=== PATIENT | male | born 1990 | race Hispanic/Latino ===

== ENCOUNTER 2017-07-25 14:15 | Emergency (ER) | payer OTHER ==
[2017-07-25 14:35] VITALS: BP 114/69; PULSE 68; RESP 16; TEMP 98.6; O2SAT 99
--- NOTE | 2017-07-25 15:45 | ED PDOC ---
HPI: CCC, URI, Sore Throat Time Seen by Provider: 07/25/17 15:14 Chief Complaint (Nursing): Cough, Cold, Congestion Chief Complaint (Provider): Cough History Per: Patient History/Exam Limitations: no limitations Have you had recent travel within the past 21 days to any of the following countries: [place], [place], [place] or [place]?: No Onset/Duration Of Symptoms: Days Current Symptoms Are (Timing): Still Present Additional History Per: Patient Additional Complaint(s): 26yo male, presents to ED for evaluation of cough, present for the past week. Patient states he was actually feeling better today and went to work; he was evaluated by a doctor at his workplace who told him he had wheezing in his left lung and instructed the patient to come to the ER to rule out pneumonia. Patient denies any fever, chills, chest pain, shortness of breath. He offers no other medical complaints. Past Medical History Reviewed: Historical Data, Nursing Documentation, Vital Signs Vital Signs: Last Vital Signs Temp 98.6 F 07/25/17 14:33 Pulse 68 07/25/17 14:33 Resp 16 07/25/17 14:33 BP 114/69 07/25/17 14:33 Pulse Ox 99 07/25/17 15:49 - Medical History PMH: Pneumonia - Surgical History Surgical History: No Surg Hx - Family History Family History: States: No Known Family Hx - Home Medications Home Medications: Ambulatory Orders Medication Instructions Recorded Azithromycin [Zithromax] 250 mg PO DAILY #6 tab 07/25/17 - Allergies Allergies/Adverse Reactions: Allergies Allergy/AdvReac Type Severity Reaction Status Date / Time No Known Allergies Allergy Verified 07/25/17 14:33 Review of Systems Constitutional: Negative for: Fever, Chills Cardiovascular: Negative for: Chest Pain Respiratory: Positive for: Cough. Negative for: Shortness of Breath Physical Exam - Reviewed Nursing Documentation Reviewed: Yes Vital Signs Reviewed: Yes - Physical Exam Appears: Positive for: Non-toxic, No Acute Distress Head Exam: Positive for: ATRAUMATIC, NORMAL INSPECTION, NORMOCEPHALIC Skin: Positive for: Normal Color Eye Exam: Positive for: Normal appearance Neck: Positive for: Supple Cardiovascular/Chest: Positive for: Regular Rate, Rhythm Respiratory: Positive for: Rhonchi (bilateral). Negative for: Wheezing Neurologic/Psych: Positive for: Alert, Oriented. Negative for: Motor/Sensory Deficits - ECG O2 Sat by Pulse Oximetry: 99 (RA) Pulse Ox Interpretation: Normal Medical Decision Making Medical Decision Making: Impression: Cough rule out pneumonia Plan: -- CXR no active disease Scribe Attestation: Documented by Brandi Delvalle acting as a scribe for MARY Henley Provider Attestation: All medical record entries made by the Scribe were at my direction and personally dictated by me. I have reviewed the chart and agree that the record accurately reflects my personal performance of the history, physical exam, medical decision making, and the department course for this patient. I have also personally directed, reviewed, and agree with the discharge instructions and disposition. Disposition - Clinical Impression Clinical Impression: Cough - Patient ED Disposition Is Patient to be Admitted: No Counseled Patient/Family Regarding: Diagnosis, Need For Followup, Rx Given - Disposition Disposition: Routine/Home Disposition Time: 16:15 Condition: GOOD Prescriptions: Azithromycin [Zithromax] 250 mg PO DAILY #6 tab Instructions: Acute Cough (ED) Forms: [facility] (Maldivian), [facility] ED School/Work Excuse
--- NOTE | 2017-07-25 15:57 | RAD ---
HISTORY: cough, right sided rhonchi COMPARISON: No prior. TECHNIQUE: Chest PA and lateral FINDINGS: LUNGS: No active pulmonary disease. PLEURA: No significant pleural effusion identified. No pneumothorax apparent. CARDIOVASCULAR: Normal. OSSEOUS STRUCTURES: No significant abnormalities. VISUALIZED UPPER ABDOMEN: Normal. OTHER FINDINGS: None. IMPRESSION: No active disease.
== END 2017-07-25 16:28 | disposition home or self-care (01) ==
LOC: H.ER 14:15
DX: R05 Cough (principal)

== ENCOUNTER 2018-10-09 16:32 | Emergency (ER) | payer OTHER ==
[2018-10-09 16:44] VITALS: TEMP 98
[2018-10-09] MEDS ORDERED: Sodium Chloride 0.9% 1,000 ML IV STA (17:05)
--- NOTE | 2018-10-09 17:08 | ED PDOC ---
HPI: General Adult Time Seen by Provider: 10/09/18 17:05 Chief Complaint (Nursing): Chest Pain Chief Complaint (Provider): CP History Per: Patient (27 Y/O MALE SENT FROM [facility] FOR EVALUATION OF ABNORMAL CXR. HAS HAD COMPLAINT OF CP NOTED WITH DEEP BREATH AND SWALLOWING X 1 DAYS. NOTES INCREASED DRINKING AND ICE CREAM LAST NIGHT. HAS H/O GERD WITH COUGH AT TIMES.) Past Medical History Reviewed: Historical Data, Nursing Documentation, Vital Signs Vital Signs: Last Vital Signs Temp 98.0 F 10/09/18 16:40 Pulse 59 L 10/09/18 16:40 Resp 19 10/09/18 16:40 BP Pulse Ox 98 10/09/18 16:40 - Medical History PMH: Pneumonia - Family History Family History: States: No Known Family Hx - Home Medications Home Medications: Ambulatory Orders Medication Instructions Recorded Azithromycin [Zithromax] 250 mg PO DAILY #6 tab 07/25/17 Ranitidine HCl [Zantac 75] 75 mg PO BID PRN #10 tablet 10/09/18 - Allergies Allergies/Adverse Reactions: Allergies Allergy/AdvReac Type Severity Reaction Status Date / Time No Known Allergies Allergy Verified 07/25/17 14:33 Review of Systems ROS Statement: Except As Marked, All Systems Reviewed And Found Negative Cardiovascular: Positive for: Chest Pain Physical Exam - Reviewed Nursing Documentation Reviewed: Yes Vital Signs Reviewed: Yes (BP 143/77) - Physical Exam Appears: Positive for: Well, Non-toxic, No Acute Distress Head Exam: Positive for: ATRAUMATIC, NORMAL INSPECTION, NORMOCEPHALIC Skin: Positive for: Normal Color, Warm, DRY Eye Exam: Positive for: EOMI, Normal appearance, PERRL ENT: Positive for: Normal ENT Inspection Neck: Positive for: Normal, Painless ROM Cardiovascular/Chest: Positive for: Regular Rate, Rhythm Respiratory: Positive for: CNT, Normal Breath Sounds Gastrointestinal/Abdominal: Positive for: Normal Exam, Soft Back: Positive for: Normal Inspection Extremity: Positive for: Normal ROM Neurological/Psych: Positive for: Awake, Alert, Normal Tone - Laboratory Results Result Diagrams: 10/09/18 17:15 10/09/18 17:15 - ECG ECG Rhythm: Positive for: Sinus Bradycardia (56 BPM; NO ECTOPY; T WAVE INV V1/V2 NO ACUTE CHANGES) O2 Sat by Pulse Oximetry: 98 - Progress ED Course And Treament: BLOOD PRESSURE 143/77 Disposition - Clinical Impression Clinical Impression: Abnormal chest xray - Patient ED Disposition Is Patient to be Admitted: Transfer of Care - Disposition Disposition: Transfer of Care Disposition Time: 19:55 Condition: FAIR Prescriptions: Ranitidine HCl [Zantac 75] 75 mg PO BID PRN #10 tablet PRN Reason: Dyspepsia Instructions: Chest Pain Patient Signed Over To: Anita Walters Handoff Comments: PENDING CT CHEST
[2018-10-09 17:19] LABS: BASO % 0.5 % (0.0-2.0); EOS # 0.3 K/uL (0.0-0.7); EOS % 3.3 % (0.0-4.0); HEMOGLOBIN 13.7 g/dL (12.0-18.0); LYMPH # 2.2 K/uL (1.0-4.3); LYMPH % 23.8 % (20.0-40.0); MEAN CELL VOLUME 87.6 fl (80.0-94.0); MEAN CORPUSCULAR HGB CONC 35.4 g/dL (33.0-37.0); MEAN PLATELET VOLUME 8.7 fl (7.2-11.7); MONO # 0.6 K/uL (0.0-0.8); MONO % 6.2 % (0.0-10.0); NEUT # 6.2 K/uL (1.8-7.0); NEUT % 66.2 % (50.0-75.0); RBC 4.41 Mil/uL (4.40-5.90); RED CELL DISTRIBUTION WIDTH 12.4 % (11.5-14.5); WHITE BLOOD COUNT 9.4 K/uL (4.8-10.8)
[2018-10-09 17:40] LABS: ALB/GLOB RATIO 1.5 (1.0-2.1); ALBUMIN 4.3 g/dL (3.5-5.0); ALT/SGPT 26 U/L (21-72); AST/SGOT 21 U/L (17-59); BLOOD UREA NITROGEN 18 mg/dl (9-20); CALCIUM 9.3 mg/dL (8.4-10.2); GFR NON-AFRICAN AMERICAN > 60
[2018-10-09] MEDS ORDERED: Sodium Chloride 0.9% 50 ML IV ONE (19:04)
[2018-10-09] MEDS ORDERED: Iohexol 300 100 ML IJ ONE (19:04)
--- NOTE | 2018-10-09 20:57 | ED PDOC ---
- Laboratory Results Result Diagrams: 10/09/18 17:15 10/09/18 17:15 Lab Results: Troponin I < 0.0120 ng/mL (0.00-0.120) 10/09/18 17:15 Total Bilirubin 0.5 mg/dl (0.2-1.3) 10/09/18 17:15 AST 21 U/L (17-59) 10/09/18 17:15 ALT 26 U/L (21-72) 10/09/18 17:15 Alkaline Phosphatase 81 U/L (38-126) 10/09/18 17:15 Total Protein 7.2 G/DL (6.3-8.2) 10/09/18 17:15 Albumin 4.3 g/dL (3.5-5.0) 10/09/18 17:15 Globulin 2.9 gm/dL (2.2-3.9) 10/09/18 17:15 Albumin/Globulin Ratio 1.5 (1.0-2.1) 10/09/18 17:15 - ECG O2 Sat by Pulse Oximetry: 98 - Progress ED Course And Treament: Case endorsed to automobile service writer from Rob [facility] pending CT CT of the chest Clinical statement: mediastinal mass. Technique: Multiple axial CT images were obtained from the thoracic inlet through the upper abdomen after a bolus administration of nonionic intravenous c ontrast. Coronal and sagittal reconstructions were also obtained. Comparison: None. Findings: The esophagus is significantly dilated, containing debris and gas. Gastroesophageal junction appears grossly unremarkable. The central pulmonary arteries and thoracic aorta are grossly unremarkable. Thyroid gland is within normal limits. There is no thoracic lymphadenopathy. There are no pericardial or pleural effusions. Small scattered ill-defined ground glass opacities are seen in the lungs bilaterally. Limited imaging of the upper abdomen is unremarkable. There are no suspicious osseous lesions. Impression:1. Severe achalasia. No discrete obstruction seen in the gastroesophageal junction. If there is further clinical concern, endoscopy could be performed. 2. Ill-defined small scattered ground glass infiltrates within the lungs bilaterally. The findings are suspicious for an atypical infectious process or inflammatory disease. Follow-up is recommended as clinically indicated Patient educated on findings, states he is aware of the Achalasia; advised GI follow up Patient discharged with rx Zpak, Medrol dose deidre, Albuterol. Patient states he has Pepcid at home, advised to continue as directed Follow up GI/Pulm Return precautions given Disposition - Clinical Impression Clinical Impression: Atypical chest pain, Pneumonia, Achalasia - POA Present On Arrival: None - Disposition Referrals: Brent Dowling MD, PhD [Staff Provider] - Rah Li MD [Staff Provider] - Disposition: Routine/Home Disposition Time: 20:58 Condition: IMPROVED Prescriptions: Albuterol HFA [Ventolin HFA 90 mcg/actuation (8 g)] 1 puff IH Q4 PRN #1 inh PRN Reason: Wheezing Azithromycin [Zithromax] 250 mg PO DAILY #1 packet Methylprednisolone [Medrol Dose Pack (21 tabs)] 4 mg PO ASDIR #21 mg Instructions: Chest Pain That Is Not Caused by the Heart (DC), Atypical Pneumonia (Mycoplasma and Viral) (DC), Achalasia
[2018-10-09 21:26] VITALS: BP 129/77; PULSE 84; RESP 18; O2SAT 99
--- NOTE | 2018-10-10 14:37 | CT ---
Date of service: 10/09/2018 PROCEDURE: CT Chest with contrast HISTORY: [employer]EN[employer] ON CXR COMPARISON: 07/25/2017. Single-view chest. TECHNIQUE: Contiguous axial images were obtained through the chest with intravenous contrast enhancement. Sagittal and coronal reconstructions were performed. IV contrast: 95 cc Omnipaque 300. Radiation dose: Total exam DLP = 574.72 mGy-cm. This CT exam was performed using one or more of the following dose reduction techniques: Automated exposure control, adjustment of the mA and/or kV according to patient size, and/or use of iterative reconstruction technique. FINDINGS: LUNGS: Clear lungs. Visualized airway clear. MEDIASTINUM: Unremarkable thoracic aorta. No aneurysm or dissection. Normal sized heart. Main pulmonary artery unremarkable. No vascular congestion. No lymphadenopathy. No aortic atherosclerotic calcification or mural plaque present. PLEURA: No pleural fluid. No pneumothorax. BONES: No fracture. No destructive lesion. UPPER ABDOMEN: Grossly unremarkable. OTHER FINDINGS: Markedly dilated esophagus containing fluid and debris. A normal decompressed stomach identified. Likely considerations include stricture and achalasia. There is no foreign body visible to suggest obstructive dilated esophagus. IMPRESSION: Marked dilatation of the esophagus in its entirety the overall appearance suggest achalasia. No visible stricture, mass, foreign body. Concordant results (preliminary interpretation) provided by [employer]. Procedure Completed: 19:13. Preliminary Report: Interpreted and electronically signed: 20:17. Final Interpretation: 14:33. October 10, 2018.
--- NOTE | 2018-10-10 21:13 | CARD ---
APPROVED REPORT Date of service: 10/09/2018 EKG Measurement Heart [id number] <Conclusion> Sinus bradycardia with sinus arrhythmia Otherwise normal ECG
== END 2018-10-09 21:28 | disposition home or self-care (01) ==
LOC: H.ER 16:32
DX: J18.9 Pneumonia, unspecified organism (principal); K22.0 Achalasia of cardia; R07.9 Chest pain, unspecified
CPT/HCPCS: 71260; 80053; 84484; 85025; 93005; 99284; J7030; Q9967